=== PATIENT | female | born 1955 | race African-American/Black ===

== ENCOUNTER 2016-11-17 11:49 | Emergency (ER) | payer OTHER ==
[2016-11-17 12:02] VITALS: BP 177/85; PULSE 78; TEMP 98.2; BMI 31.7
--- NOTE | 2016-11-17 13:06 | PDOC ---
History of Present Illness - General Chief Complaint: Rash Stated Complaint: RASH/ POSSIBLE SHINGLES Time Seen by Provider: 11/17/16 12:25 History Source: Patient Exam Limitations: No Limitations - History of Present Illness Initial Comments: 11/17/16 13:04 Patient is a 61-year-old female history of COPD, reflux, hypertension, high cholesterol and cardiac stents. Patient presents emergency department for evaluation of painful rash to left lateral torso and her back. Was seen by cardiology today and was started on Valtrex however patient came to the emergency department because her primary care doctor was unavailable and she was not sure that the podiatry professor made the right decision on her diagnosis. Past Medical History: Denies. Allergies: No known allergies Medications: See medication list Family History: Non-contributory Social History: Denies smoking, alcohol use, or IVDU Review of Systems GENERAL/CONSTITUTIONAL: No fever or chills. No weakness. No weight change. HEAD, EYES, EARS, NOSE AND THROAT: No change in vision. No ear pain or discharge. No sore throat. CARDIOVASCULAR: No chest pain or shortness of breath. RESPIRATORY: No cough, wheezing, or hemoptysis. GASTROINTESTINAL: No nausea, vomiting, diarrhea or constipation. No rectal bleeding. GENITOURINARY: No dysuria, frequency, or change in urination. MUSCULOSKELETAL: No joint or muscle swelling or pain. No neck or back pain. SKIN AND BREASTS: Vesicular, painful annular rash to left lateral torso extending to back, dermatomal pattern NEUROLOGIC: No headache, vertigo, loss of consciousness, or loss of sensation. PSYCHIATRIC: No depression or anxiety. ENDOCRINE: No increased thirst. No abnormal weight change. HEMATOLOGIC/LYMPHATIC: No anemia, easy bleeding, or history of blood clots. ALLERGIC/IMMUNOLOGIC: No hives or skin allergy. No latex allergy. Physical Exam: GENERAL: The patient is awake, alert, and fully oriented, in no acute distress. EYES: Pupils equal, round and reactive to light, extraocular movements intact, sclera anicteric, conjunctiva clear. ENT: Ears normal, nares patent, oropharynx clear without exudates. Moist mucous membranes. No uvula deviation NECK: Normal range of motion, supple without lymphadenopathy, JVD, or masses. LUNGS: Breath sounds equal, clear to auscultation bilaterally. No wheezes, and no crackles. HEART: Regular rate and rhythm, normal S1 and S2 without murmur, rub or gallop. ABDOMEN: Soft, nontender, normoactive bowel sounds. No guarding, no rebound. No masses. No bruising or abrasions MUSCULOSKELETAL: Normal range of motion, no edema. No clubbing or cyanosis. No cords, erythema, or tenderness. No CVA Tenderness with fist. NEUROLOGICAL: Cranial nerves II through XII grossly intact. Normal speech, normal gait. SKIN: Vesicular, painful annular rash to left lateral torso extending to back, dermatomal pattern Past History - Past Medical History Allergies/Adverse Reactions: Allergies Allergy/AdvReac Type Severity Reaction Status Date / Time Penicillins Allergy Severe Hives Verified 11/17/16 11:57 Home Medications: Ambulatory Orders Clopidogrel Bisulfate [Plavix -] 75 mg PO DAILY 07/09/11 Furosemide [Lasix -] 40 mg PO DAILY 07/09/11 Lansoprazole [Prevacid -] 30 mg PO DAILY 07/09/11 Metoprolol Succinate [Toprol XL -] 0 mg PO BID 07/09/11 Simvastatin [Zocor -] 20 mg PO DAILY 07/09/11 Aspirin [ASA -] 81 mg PO DAILY 10/01/11 Lipase/Protease/Amylase [Creon Dr 24,000 Units Capsule] 1 each PO TID 10/01/11 Loratadine [Claritin] 0 mg PO PRN 10/01/11 Cardiac Disorders: Yes COPD: Yes (H/O BRONCHITIS) GI Disorders: Yes (ACID REFLUX) HTN: Yes Hypercholesterolemia: Yes - Surgical History Abdominal Surgery: Yes Cardiac Surgery: Yes (CARDIAC STENT) Cholecystectomy: Yes - Psycho/Social/Smoking Cessation Hx Anxiety: No Suicidal Ideation: No Smoking Status: No Smoking History: Former smoker Have you smoked in the past 12 months: No Number of Cigarettes Smoked Daily: 0 Information on smoking cessation initiated: No 'Breaking Loose' booklet given: 08/31/13 Hx Alcohol Use: No Drug/Substance Use Hx: No Substance Use Type: None *Physical Exam - Vital Signs Last Vital Signs Temp Pulse Resp BP Pulse Ox 98.2 F 78 18 177/85 100 11/17/16 11:59 11/17/16 11:59 11/17/16 11:59 11/17/16 11:59 11/17/16 11:59 Medical Decision Making - Medical Decision Making 11/17/16 13:23 A/P: Administration here for evaluation of painful rash to left lateral torso and back. Findings are consistent with shingles, patient was placed on appropriate medication confirmed after calling the pharmacy. Patient was on Valtrex, topical lidocaine as well as medication for pain. Patient to follow-up with PMD as needed instructed patient that if any lesions develop on face aren' t I to return immediately to ER. *DC/Admit/Observation/Transfer Diagnosis at time of Disposition: Shingles Qualifiers: Herpes zoster complications: without complications Qualified Code(s): B02.9 - Zoster without complications - Discharge Dispostion Disposition: HOME Condition at time of disposition: Good Admit: No - Referrals Referrals: Lisset Morfin MD [Primary Care Provider] - - Patient Instructions Additional Instructions: All of your prescriptions were called in by her primary care doctor for pain medication, topical ointment as well as for Valtrex. These are appropriate medications to treat her condition, please follow-up with your PMD in 1 week. If any increased pain, lesions to eyes, or any other concerns return to ER
== END 2016-11-17 13:08 | disposition home or self-care (01) ==
LOC: JERFT 11:49
DX: B02.9 Zoster without complications (principal); I25.10 Atherosclerotic heart disease of native coronary artery without angina pectoris; I10 Essential (primary) hypertension; Z95.5 Presence of coronary angioplasty implant and graft; E78.00 Pure hypercholesterolemia, unspecified
CPT/HCPCS: 99281-25

== ENCOUNTER 2017-04-21 16:41 | Emergency (ER) | payer OTHER ==
--- NOTE | 2017-04-21 16:58 | PDOC ---
Rapid Medical Evaluation Time Seen by Provider: 04/21/17 16:55 Medical Evaluation: Allergies Allergy/AdvReac Type Severity Reaction Status Date / Time Penicillins Allergy Severe Hives Verified 11/17/16 11:57 04/21/17 16:55 I have performed a brief in-person evaluation of this patient. The patient presents with a chief complaint of: Lower abd pain since last night worse w/ food, unsure if GERD per pt. Also c/o urinary freg x 3 days. H/o former smoker, HTN, CAD w/ stent, gastritis/GERD, UTI Pertinent physical exam findings:stable w/ unremarkable exam I have ordered the following:labs The patient will proceed to the ED for further evaluation. 04/21/17 16:58
[2017-04-21 17:00] VITALS: BP 118/54; PULSE 66; TEMP 98.4; BMI 32.5
[2017-04-21 17:36] LABS: BASO % 0.4 % (0-2.0); LYMPH % 8.1 % (8-40); MCH 27.8 pg (25.7-33.7); MEAN CELL VOLUME 89.9 fl (80-96); MEAN PLT VOLUME 8.6 fl (7.5-11.1); MONO % 4.8 % (3.8-10.2); NEUT % 86.7 % (42.8-82.8); PLATELET COUNT 247 K/MM3 (134-434); RBC 4.68 M/mm3 (3.60-5.2); RDW 13.5 % (11.6-15.6); WHITE BLOOD COUNT 11.9 K/mm3 (4.0-10.0)
[2017-04-21 17:42] LABS: URINE APPEARANCE CLEAR; URINE BILIRUBIN NEGATIVE (NEGATIVE); URINE BLOOD NEGATIVE (NEGATIVE); URINE COLOR STRAW; URINE GLUCOSE (UA) NEGATIVE (NEGATIVE); URINE KETONE NEGATIVE (NEGATIVE); URINE LEUK ESTERASE NEGATIVE (NEGATIVE); URINE NITRITE NEGATIVE (NEGATIVE); URINE PROTEIN NEGATIVE (NEGATIVE); URINE UROBILINOGEN NEGATIVE mg/dL (0.2-1.0)
[2017-04-21 18:43] LABS: ALBUMIN 3.7 g/dl (3.4-5.0); ALK PHOS 65 U/L (45-117); ANION GAP 7 (8-16); BILIRUBIN,TOTAL 0.9 mg/dL (0.2-1.0); BLOOD UREA NITROGEN 18 mg/dL (7-18); CALCIUM 9.6 mg/dL (8.5-10.1); CHLORIDE 101 mmol/L (98-107); CO2 31 mmol/L (21-32); CREATININE 0.8 mg/dL (0.55-1.02); GLUCOSE,RANDOM 107 mg/dL (74-106); LIPASE 168 U/L (73-393); POTASSIUM 4.2 mmol/L (3.5-5.1); SGOT/AST 16 U/L (15-37); SGPT/ALT 44 U/L (12-78); SODIUM 139 mmol/L (136-145)
== END 2017-04-21 20:00 | disposition left against medical advice (07) ==
LOC: JER 16:41
DX: R10.30 Lower abdominal pain, unspecified (principal); I25.10 Atherosclerotic heart disease of native coronary artery without angina pectoris; I10 Essential (primary) hypertension; Z95.5 Presence of coronary angioplasty implant and graft; K21.9 Gastro-esophageal reflux disease without esophagitis; Z87.891 Personal history of nicotine dependence; Z87.440 Personal history of urinary (tract) infections
CPT/HCPCS: 36415; 80053; 81003; 83690; 85025; 87086; 87186; 99281-25

== ENCOUNTER 2019-03-05 11:55 | Emergency (ER) | payer OTHER ==
[2019-03-05 12:05] VITALS: BP 130/71; PULSE 85; TEMP 98; BMI 33.8
--- NOTE | 2019-03-05 12:33 | PDOC ---
History of Present Illness - General Chief Complaint: Pain, Acute Stated Complaint: PAIN Time Seen by Provider: 03/05/19 12:08 History Source: Patient Exam Limitations: Clinical Condition - History of Present Illness Initial Comments: 03/05/19 12:27 Patient with past medical history of venous insufficiency being followed up by vascular present with complaint of over 4 months history of persistent swelling and pain to posterior aspect of right knee with increased swelling over right knee. Patient had duplex ultrasound done 4 months ago which shows venous insufficiency with no DVT and was being scheduled for ablation but patient has not followed up since then. Denies numbness or tingling sensation. Denies calf muscle pain, shortness of breath, chest pain, palpitations. Denies any other symptoms Is this a multiple visit Asthma Patient?: No Past History - Past Medical History Allergies/Adverse Reactions: Allergies Allergy/AdvReac Type Severity Reaction Status Date / Time Penicillins Allergy Severe Hives Verified 03/05/19 12:06 codeine AdvReac Intermediate Nausea Verified 03/05/19 12:06 Home Medications: Ambulatory Orders Clopidogrel Bisulfate [Plavix -] 75 mg PO DAILY 07/09/11 Furosemide [Lasix -] 40 mg PO DAILY 07/09/11 Lansoprazole [Prevacid -] 30 mg PO DAILY 07/09/11 Metoprolol Succinate [Toprol XL -] 0 mg PO BID 07/09/11 Simvastatin [Zocor -] 20 mg PO DAILY 07/09/11 Aspirin [ASA -] 81 mg PO DAILY 10/01/11 Lipase/Protease/Amylase [Creon Dr 24,000 Units Capsule] 1 each PO TID 10/01/11 Loratadine [Claritin] 0 mg PO PRN 10/01/11 Nitrofurantoin Monohyd/M-Cryst [Macrobid -] 100 mg PO BID #14 capsule 04/25/17 Albuterol Sulfate TID 09/20/18 Calcium 500 mg PO DAILY 09/20/18 Folic Acid - 1 mg PO DAILY 09/20/18 Hydrochlorothiazide 12.5 mg PO DAILY 09/20/18 Lipitor 40 mg PO DAILY 09/20/18 Potassium Chloride 10 meq PO DAILY 09/20/18 Spiriva 2 puff PO BID 09/20/18 Compress.stocking,Knee,Reg,Lrg [Relief Knee Open Toe] 1 each MC DAILY #1 each Anemia: No Asthma: No Cancer: No Cardiac Disorders: Yes CVA: No COPD: Yes (H/O BRONCHITIS) CHF: No Dementia: No Diabetes: No GI Disorders: Yes (ACID REFLUX) Disorders: No HTN: Yes Hypercholesterolemia: Yes Liver Disease: No Seizures: No Thyroid Disease: No - Surgical History Abdominal Surgery: Yes Appendectomy: No Cardiac Surgery: Yes (CARDIAC STENT) Cholecystectomy: Yes Lung Surgery: No Neurologic Surgery: No Orthopedic Surgery: No - Psycho Social/Smoking Cessation Hx Smoking Status: No Smoking History: Unknown if ever smoked Have you smoked in the past 12 months: No Number of Cigarettes Smoked Daily: 0 Information on smoking cessation initiated: No 'Breaking Loose' booklet given: 08/31/13 Hx Alcohol Use: No Drug/Substance Use Hx: No Substance Use Type: None Review of Systems - Review of Systems Able to Perform ROS?: Yes Is the patient limited Serbian proficient: No Constitutional: No: Fever, Malaise, Weakness HEENTM: No: Symptoms Reported Respiratory: No: Symptoms reported, Shortness of Breath, SOB with Exertion, Hemoptysis Cardiac (ROS): No: Symptoms Reported, See HPI, Chest Pain, Edema, Irregular Heart Rate, Lightheadedness, Palpitations, Syncope, Chest Tightness, Other ABD/GI: No: Symptoms Reported Musculoskeletal: Yes: Symptoms Reported, See HPI, Joint Pain (right knee), Joint Swelling (right knee swelling), Muscle Pain (posterior right knee pain) Integumentary: No: Symptoms Reported, See HPI, Change in Color, Erythema Neurological: No: Symptoms reported, Numbness, Paresthesia, Tingling All Other Systems: Reviewed and Negative *Physical Exam - Vital Signs Last Vital Signs Temp Pulse Resp BP Pulse Ox 98.0 F 85 16 130/71 100 03/05/19 12:03 03/05/19 12:03 03/05/19 12:03 03/05/19 12:03 03/05/19 12:03 - Physical Exam General Appearance: Yes: Nourished, Appropriately Dressed. No: Apparent Distress HEENT: positive: Normal ENT Inspection Neck: positive: Supple Respiratory/Chest: negative: Respiratory Distress, Accessory Muscle Use Cardiovascular: positive: Regular Rhythm, Regular Rate Musculoskeletal: positive: Normal Inspection, Other (multiple varices to b/l LE mild tenderness over posterior aspect of right knee) Extremity: positive: Normal Capillary Refill, Normal Range of Motion Integumentary: positive: Normal Color, Warm, Swelling (mild swelling over lateral aspect of right knee). negative: Other (no increased warmth or erythema to right knee) Neurologic: positive: Fully Oriented, Alert, Normal Response, Motor Strength 08/01 ED Treatment Course - RADIOLOGY Radiology Studies Ordered: Category Date Time Status KNEE 3 POS-RIGHT [RAD] Stat Radiology 03/05/19 12:21 Ordered Medical Decision Making - Medical Decision Making 03/05/19 12:29 Patient with past medical history of venous insufficiency being followed up by vascular present with complaint of over 4 months history of persistent swelling and pain to posterior aspect of right knee with increased swelling over right knee. Patient had duplex ultrasound done 4 months ago which shows venous insufficiency with no DVT and was being scheduled for ablation but patient has not followed up since then. Denies numbness or tingling sensation. Denies calf muscle pain, shortness of breath, chest pain, palpitations. Denies any other symptoms Exam significant for multiple varices to bilateral extremity with increased varices to posterior aspect of right lower extremity. Mild swelling to lateral collateral ligament. No bilateral joint effusion. Negative ballottement sign. Patient symptoms likely pain from venous insufficiency. X-ray of right knee ordered to rule out acute pathology 03/05/19 13:16 Right knee x-ray shows no acute pathology. Patient symptoms edema from venous insufficiency. Patient stable for discharge on compression stockings with follow-up back with vascular Dr. Gomez for management of venous insufficiency. Discharge - Discharge Information Problems reviewed: Yes Clinical Impression/Diagnosis: Venous insufficiency Right knee pain Qualifiers: Chronicity: chronic Qualified Code(s): M25.561 - Pain in right knee Condition: Stable Disposition: HOME - Admission No - Additional Discharge Information Prescriptions: Compress.stocking,Knee,Reg,Lrg [Relief Knee Open Toe] 1 each DAILY #1 each - Follow up/Referral Referrals: Eder Gomez DO [Staff Physician] - - Patient Discharge Instructions Patient Printed Discharge Instructions: DI for Edema Due to Venous Stasis Additional Instructions: Your x-ray is normal and your swelling is likely caused by venous insufficiency as discussed. Use prescribed compression stockings daily. Follow-up with vascular again to manage venous insufficiency - Post Discharge Activity
== END 2019-03-05 13:23 | disposition home or self-care (01) ==
LOC: JERFT 11:55
DX: M25.561 Pain in right knee (principal); I99.8 Other disorder of circulatory system; Z88.0 Allergy status to penicillin; Z88.6 Allergy status to analgesic agent; Z95.5 Presence of coronary angioplasty implant and graft; K21.9 Gastro-esophageal reflux disease without esophagitis; I10 Essential (primary) hypertension; E78.00 Pure hypercholesterolemia, unspecified; I51.9 Heart disease, unspecified
CPT/HCPCS: 73562-TC-RT-FY; 99282-25

== ENCOUNTER 2019-11-02 10:16 | Emergency (ER) | payer OTHER ==
[2019-11-02 10:34] VITALS: TEMP 98.6; BMI 32.0
[2019-11-02] MEDS ORDERED: SODIUM CHLORIDE 0.9% 500 ML INFUS.BAG IV ONE (11:14)
--- NOTE | 2019-11-02 11:14 | PDOC ---
History of Present Illness - General Chief Complaint: Ingestion Stated Complaint: TOOK WRONG MEDS/TIRED Time Seen by Provider: 11/02/19 10:45 History Source: Patient Exam Limitations: No Limitations - History of Present Illness Initial Comments: 11/02/19 11:25 64-year-old female history of CAD status post stent on Plavix and aspirin, hypertension, hyperlipidemia, UTI currently on cephalexin presents complaining of feeling sleepy and groggy over the past hour. States she has a daughter at home has multiple sclerosis and she accidentally took the wrong medications. She took her daughter's medications which was next to her medication. Usually the medications are in 2 separate bags however she her daughter's medicine in one area and her medicine in another area. She ingested gabapentin 300 mg, Remeron 15 mg 1 tablet, Zoloft 50 mg 1 tablet and Benadryl 25 mg 1 tablet approximately 1 hour ago. Denies chest pain, shortness of breath, abdominal pain, nausea, vomiting, diarrhea, back pain, suicidal or homicidal ideation or any other complaint. ROS: as above PE: GENERAL: well-appearing, NAD HEAD: NCAT EYES: Pupils equal, round and reactive to light, sclera anicteric, conjunctiva clear ENT: pharynx: no erythema, no exudate, uvula midline NECK: supple CHEST: nontender RESP: clear, no w/r/r CARDIO: rrr, no m/g/r ABD: +BS, soft, nontender, non distended BACK: no midline spinal ttp, no CVAT EXTREMITIES: Normal range of motion, no edema NEUROLOGICAL: Minimal slurred speech, normal gait SKIN: Warm, Dry 11/02/19 15:29 11/02/19 15:31 Is this a multiple visit Asthma Patient?: No Past History - Medical History Allergies/Adverse Reactions: Allergies Allergy/AdvReac Type Severity Reaction Status Date / Time Penicillins Allergy Severe Hives Verified 11/02/19 10:34 codeine AdvReac Intermediate Nausea Verified 11/02/19 10:34 Home Medications: Ambulatory Orders Clopidogrel Bisulfate [Plavix -] 75 mg PO DAILY 07/09/11 Furosemide [Lasix -] 40 mg PO DAILY 07/09/11 Lansoprazole [Prevacid -] 30 mg PO DAILY 07/09/11 Metoprolol Succinate [Toprol XL -] 0 mg PO BID 07/09/11 Simvastatin [Zocor -] 20 mg PO DAILY 07/09/11 Aspirin [ASA -] 81 mg PO DAILY 10/01/11 Lipase/Protease/Amylase [Creon Dr 24,000 Units Capsule] 1 each PO TID 10/01/11 Loratadine [Claritin] 0 mg PO PRN 10/01/11 Nitrofurantoin Monohyd/M-Cryst [Macrobid -] 100 mg PO BID #14 capsule 04/25/17 Albuterol Sulfate TID 09/20/18 Calcium 500 mg PO DAILY 09/20/18 Folic Acid - 1 mg PO DAILY 09/20/18 Hydrochlorothiazide 12.5 mg PO DAILY 09/20/18 Lipitor 40 mg PO DAILY 09/20/18 Potassium Chloride 10 meq PO DAILY 09/20/18 Spiriva 2 puff PO BID 09/20/18 Compress.stocking,Knee,Reg,Lrg [Relief Knee Open Toe] 1 each MC DAILY #1 each 03/05/19 Anemia: No Asthma: No Cancer: No Cardiac Disorders: Yes CVA: No COPD: Yes (H/O BRONCHITIS) CHF: No Dementia: No Diabetes: No GI Disorders: Yes (ACID REFLUX) Disorders: No HTN: Yes Hypercholesterolemia: Yes Liver Disease: No Seizures: No Thyroid Disease: No - Surgical History Abdominal Surgery: Yes Appendectomy: No Cardiac Surgery: Yes (CARDIAC STENT) Cholecystectomy: Yes Lung Surgery: No Neurologic Surgery: No Orthopedic Surgery: No - Reproductive History Is Patient Now?: No - Psycho-Social/Smoking History Smoking Status: No Smoking History: Never smoked Have you smoked in the past 12 months: No Number of Cigarettes Smoked Daily: 0 Information on smoking cessation initiated: No 'Breaking Loose' booklet given: 08/31/13 - Substance Abuse Hx (Audit-C & DAST Scrn) How often the patient has a drink containing alcohol: Never Score: In Men: 4 or > Positive; In Women: 3 or > Positive: 0 Screen Result (Pos requires Nsg. Audit-10AR): Negative In the last yr the pt used illegal drug/Rx for NonMed reason: No Score: Yes response is considered Positive: 0 Screen Result (Positive result requires Nsg. DAST-10): Negative *Physical Exam - Vital Signs Last Vital Signs Temp Pulse Resp BP Pulse Ox 98.6 F 74 16 114/66 100 11/02/19 10:31 11/02/19 10:31 11/02/19 10:31 11/02/19 10:31 11/02/19 10:31 ED Treatment Course - LABORATORY CBC & Chemistry Diagram: 11/02/19 12:00 11/02/19 12:00 Medical Decision Making - Medical Decision Making 11/02/19 11:52 64-year-old female history of CAD status post stent on Plavix and aspirin, hypertension, hyperlipidemia, UTI currently on cephalexin presents complaining of feeling sleepy and groggy over the past hour. States she has a daughter at home has multiple sclerosis and she accidentally took the wrong medications. She took her daughter's medications which was next to her medication. Usually the medications are in 2 separate bags however she her daughter's medicine in one area and her medicine in another area. She ingested gabapentin 300 mg, Remeron 15 mg 1 tablet, Zoloft 50 mg 1 tablet and Benadryl 25 mg 1 tablet approximately 1 hour ago. Denies chest pain, shortness of breath, abdominal pain, nausea, vomiting, diarrhea, back pain, suicidal or homicidal or any other complaint. CBC, CMP, PT/PTT EKG Chest x-ray IV fluids Consult poison control Reassess 11/02/19 15:[address] Asher from poison control at 12:10 pm who agreed with above plan, advised to observe 6 hours from time of ingestion Reviewed labs ecg: HR 93, nsr, no st or tw changes Patient slept comfortably in the ED and now feels less sleepy Patient denies nausea, vomiting, chest pain, shortness of breath or any complaints No concerning events in the ED Patient agrees with discharge plan She she agrees to find a different system such as getting different color-coded pillboxes in order to avoid any confusion at home Stable for discharge 11/02/19 15:29 11/02/19 15:30 11/02/19 15:32 Discharge - Discharge Information Problems reviewed: Yes Clinical Impression/Diagnosis: Accidental ingestion of substance Qualifiers: Encounter type: initial encounter Qualified Code(s): T65.91XA - Toxic effect of unspecified substance, accidental (unintentional), initial encounter Condition: Stable Disposition: HOME - Admission No - Follow up/Referral Referrals: Colleen Chaves NP [Primary Care Provider] - - Patient Discharge Instructions Additional Instructions: Make sure you take only your medications as prescribed Label all medications at home appropriately If you develop chest pain, shortness of breath, dizziness, vomiting, abdominal pain or any concerning symptom return to ED - Post Discharge Activity
[2019-11-02 12:55] LABS: BASO % 0.3 % (0-2.0); EOS % 1.4 % (0-4.5); HEMATOCRIT 44.8 % (32.4-45.2); HEMOGLOBIN 14.4 GM/dL (10.7-15.3); LYMPH % 21.1 % (8-40); MCH 28.6 pg (25.7-33.7); MEAN CELL VOLUME 89.4 fl (80-96); MEAN PLT VOLUME 8.7 fl (7.5-11.1); MONO % 10.2 % (3.8-10.2); PLATELET COUNT 244 K/MM3 (134-434); RBC 5.02 M/mm3 (3.60-5.2); RDW 13.2 % (11.6-15.6); WHITE BLOOD COUNT 5.3 K/mm3 (4.0-10.0)
[2019-11-02 12:58] LABS: PH,URINE 5.5 (5.0-8.0); URINE APPEARANCE CLEAR; URINE BILIRUBIN NEGATIVE (NEGATIVE); URINE COLOR YELLOW; URINE GLUCOSE (UA) NEGATIVE (NEGATIVE); URINE KETONE NEGATIVE (NEGATIVE); URINE LEUK ESTERASE NEGATIVE (NEGATIVE); URINE NITRITE NEGATIVE (NEGATIVE); URINE PROTEIN NEGATIVE (NEGATIVE)
[2019-11-02 13:00] LABS: INR 0.95 (0.83-1.09); PROTHROMBIN TIME (PATIENT) 11.2 SEC (9.7-13.0)
[2019-11-02 13:03] LABS: ACTIVATED PTT 34.8 SECONDS (25.2-36.5)
[2019-11-02 13:28] LABS: BLOOD UREA NITROGEN 17.7 mg/dL (7-18); CALCIUM 9.4 mg/dL (8.5-10.1); CREATININE 0.6 mg/dL (0.55-1.3); POTASSIUM 4.7 mmol/L (3.5-5.1)
[2019-11-02 13:30] LABS: BILIRUBIN,TOTAL 0.8 mg/dL (0.2-1); TOT PROT 7.4 g/dl (6.4-8.2)
[2019-11-02 16:09] VITALS: BP 163/82; PULSE 57
--- NOTE | 2019-11-03 14:50 | EKG ---
Test Reason : Blood Pressure : / mmHG Vent. Rate : 059 BPM Atrial Rate : 059 BPM P-R Int : 184 ms QRS Dur : 090 ms QT Int : 426 ms P-R-T Axes : 052 026 024 degrees QTc Int : 421 ms SINUS BRADYCARDIA OTHERWISE NORMAL ECG WHEN COMPARED WITH ECG OF 01-OCT-2011 17:13, NO SIGNIFICANT CHANGE WAS FOUND Confirmed by BRENT MARIEE MD ([id number]) on 11/03/2019 2:50:21 PM Referred By: Confirmed By:BRENT MARIEE MD
== END 2019-11-02 16:00 | disposition home or self-care (01) ==
LOC: JER 10:16
DX: T65.91XA Toxic effect of unspecified substance, accidental (unintentional), initial encounter (principal)
CPT/HCPCS: 36415; 80053; 81003; 83690; 85025; 85610; 85730; 87077; 87086; 87186; 93005; 93010; 99284-25

== ENCOUNTER 2021-08-10 02:12 | Inpatient (IN) | payer OTHER ==
[2021-08-10] MEDS ORDERED: SODIUM CHLORIDE 0.9% 500 ML INFUS.BAG IV ONE ×2 (02:39→09:25)
[2021-08-10] MEDS ORDERED: FAMOTIDINE 20 MG/50 ML IVPB 20 MG/50 ML MG IVPB ONE (02:39)
[2021-08-10] MEDS ORDERED: ONDANSETRON 4 MG/2 ML VIAL IVPUSH ONE (02:39)
[2021-08-10] MEDS ORDERED: ACETAMINOPHEN 1000 MG/100 ML BAG IVPB ONE (02:39)
[2021-08-10] MEDS ORDERED: ONDANSETRON 4 MG/2 ML VIAL ONE (02:49)
[2021-08-10] MEDS ORDERED: FAMOTIDINE 10 MG/ML VIAL IVPB ONE (02:49)
[2021-08-10] MEDS ORDERED: ACETAMINOPHEN INJECTION 100 ML IVPB ONE (02:49)
[2021-08-10 03:55] LABS: BASO % 0.2 % (0-2.0); EOS % 0.1 % (0-4.5); HEMATOCRIT 41.2 % (32.4-45.2); HEMOGLOBIN 13.4 GM/dL (10.7-15.3); LYMPH % 5.2 % (8-40); MCHC 32.5 g/dl (32.0-36.0); MEAN CELL VOLUME 89.4 fl (80-96); MEAN PLT VOLUME 7.5 fl (7.5-11.1); MONO % 5.5 % (3.8-10.2); PLATELET COUNT 255 10^3/uL (134-434); RBC 4.62 M/mm3 (3.60-5.2); WHITE BLOOD COUNT 12.2 K/mm3 (4.0-10.0)
[2021-08-10 04:04] LABS: INR 1.05 (0.83-1.09); PROTHROMBIN TIME (PATIENT) 12.1 SEC (9.7-13.0)
[2021-08-10 04:06] LABS: ACTIVATED PTT 31.1 SECONDS (25.2-36.5)
[2021-08-10 04:16] LABS: CALCIUM 9.1 mg/dL (8.5-10.1)
[2021-08-10 04:17] LABS: ALBUMIN 3.8 g/dl (3.4-5.0); BLOOD UREA NITROGEN 20.1 mg/dL (7-18); MAGNESIUM 2.2 mg/dL (1.8-2.4)
[2021-08-10 04:20] LABS: BILIRUBIN,TOTAL 0.8 mg/dL (0.2-1); CREATININE 0.8 mg/dL (0.55-1.3); TOT PROT 7.1 g/dl (6.4-8.2)
[2021-08-10 04:30] LABS: LACTIC ACID 3.4 mmol/L (0.4-2.0)
[2021-08-10 06:52] LABS: LACTIC ACID 2.9 mmol/L (0.4-2.0)
[2021-08-10 08:28] LABS: EPI CELLS 18 /uL (0-25.1); HYALINE CASTS 1 /uL (0-3.1); PH,URINE 5.5 (5.0-8.0); URINE APPEARANCE CLEAR; URINE BACTERIA 581 /uL (0-1359); URINE BILIRUBIN NEGATIVE (NEGATIVE); URINE COLOR YELLOW; URINE GLUCOSE (UA) NEGATIVE (NEGATIVE); URINE KETONE NEGATIVE (NEGATIVE); URINE LEUK ESTERASE TRACE (NEGATIVE); URINE NITRITE NEGATIVE (NEGATIVE); URINE PROTEIN NEGATIVE (NEGATIVE); URINE RBC 70 /uL (0-23.9); URINE WBC 5 /uL (0-25.8)
[2021-08-10 09:00] LABS: YEAST NEGATIVE (NEGATIVE)
[2021-08-10] MEDS ORDERED: morphine CARPU-JECT 2 MG/1 ML DISP.SYRIN IVPUSH ONE (10:23)
[2021-08-10] MEDS ORDERED: ACETAMINOPHEN 1000 MG/100 ML BAG IVPB PRN (10:33)
[2021-08-10] MEDS: metoPROLOL SUCCINATE 25 MG TAB.SR.24H (FP) PO SCH (14:00)
[2021-08-10] MEDS ORDERED: metoPROLOL SUCCINATE 25 MG TAB.SR.24H (FP) ONE (14:21)
[2021-08-10] MEDS: D5-1/2NS+20 MEQ KCL - 20 MEQ/1,000 ML INFUS.BAG IV SCH (14:57)
[2021-08-10] MEDS: ONDANSETRON 4 MG/2 ML VIAL IVPUSH PRN (17:40)
[2021-08-10] MEDS ORDERED: FAMOTIDINE 20 MG/50 ML IVPB 20 MG/50 ML MG IVPB SCH (22:00)
[2021-08-11] MEDS: D5-1/2NS+20 MEQ KCL - 20 MEQ/1,000 ML INFUS.BAG IV SCH ×2 (03:05→11:53)
[2021-08-11] MEDS: ONDANSETRON 4 MG/2 ML VIAL IVPUSH PRN (07:23)
[2021-08-11 08:35] LABS: BASO % 0.1 % (0-2.0); EOS % 0.6 % (0-4.5); HEMATOCRIT 41.5 % (32.4-45.2); HEMOGLOBIN 13.8 GM/dL (10.7-15.3); LYMPH % 15.3 % (8-40); MCHC 33.4 g/dl (32.0-36.0); MEAN CELL VOLUME 89.8 fl (80-96); MEAN PLT VOLUME 7.8 fl (7.5-11.1); MONO % 7.3 % (3.8-10.2); NEUT % 76.7 % (42.8-82.8); PLATELET COUNT 241 10^3/uL (134-434); RBC 4.62 M/mm3 (3.60-5.2); RDW 13.2 % (11.6-15.6); WHITE BLOOD COUNT 9.3 K/mm3 (4.0-10.0)
[2021-08-11 08:55] LABS: CALCIUM 8.5 mg/dL (8.5-10.1)
[2021-08-11 08:56] LABS: BLOOD UREA NITROGEN 7.4 mg/dL (7-18)
[2021-08-11 08:58] LABS: CREATININE 0.7 mg/dL (0.55-1.3)
[2021-08-11 09:00] LABS: BILIRUBIN,TOTAL 1.2 mg/dL (0.2-1); TOT PROT 6.1 g/dl (6.4-8.2)
[2021-08-11] MEDS: metoPROLOL SUCCINATE 25 MG TAB.SR.24H (FP) PO SCH (09:14)
[2021-08-11] MEDS ORDERED: PANTOPRAZOLE SODIUM 40 MG VIAL IVPUSH SCH (10:00)
[2021-08-11] MEDS ORDERED: [UNRECOGNIZED DRUG - OTHER] IH SCH (10:00)
[2021-08-11] MEDS ORDERED: MIST IH SCH (10:00)
[2021-08-11] MEDS ORDERED: metoPROLOL SUCCINATE 25 MG TAB.SR.24H (FP) PO SCH (10:00)
[2021-08-11] MEDS ORDERED: TIOTROPIUM BROMIDE 4 GM IH SCH (10:00)
[2021-08-11] MEDS: TIOTROPIUM BROMIDE 2.5 MCG (SPIRIVA) RESPIMAT INHALER IH SCH (10:20)
[2021-08-11] MEDS: ALBUTEROL SO4 HFA INHALER IH PRN (10:27)
[2021-08-11] MEDS: FAMOTIDINE/PF 20 MG/2 ML VIAL IVPB SCH ×2 (11:52→21:48)
[2021-08-12] MEDS: D5-1/2NS+20 MEQ KCL - 20 MEQ/1,000 ML INFUS.BAG IV SCH ×3 (06:17→23:43)
[2021-08-12 09:02] LABS: HEMATOCRIT 37.8 % (32.4-45.2); HEMOGLOBIN 12.2 GM/dL (10.7-15.3); MCH 29.1 pg (25.7-33.7); MCHC 32.4 g/dl (32.0-36.0); MEAN CELL VOLUME 89.8 fl (80-96); PLATELET COUNT 218 10^3/uL (134-434); RBC 4.21 M/mm3 (3.60-5.2); RDW 12.8 % (11.6-15.6); WHITE BLOOD COUNT 8.3 K/mm3 (4.0-10.0)
[2021-08-12] MEDS: metoPROLOL SUCCINATE 25 MG TAB.SR.24H (FP) PO SCH (09:39)
[2021-08-12] MEDS: TIOTROPIUM BROMIDE 2.5 MCG (SPIRIVA) RESPIMAT INHALER IH SCH (09:39)
[2021-08-12 09:42] LABS: ALBUMIN 2.6 g/dl (3.4-5.0); TOT PROT 5.3 g/dl (6.4-8.2)
[2021-08-12 09:44] LABS: CREATININE 0.5 mg/dL (0.55-1.3)
[2021-08-12 09:46] LABS: CALCIUM 8.1 mg/dL (8.5-10.1)
[2021-08-12] MEDS: FAMOTIDINE/PF 20 MG/2 ML VIAL IVPB SCH (10:48)
[2021-08-12 16:02] VITALS: BMI 33.1
[2021-08-12] MEDS: FAMOTIDINE 20 MG TABLET PO SCH (21:49)
[2021-08-13] MEDS ORDERED: FUROSEMIDE 20 MG TABLET (FP) PO PRN (08:05)
[2021-08-13 08:50] LABS: BASO % 0.2 % (0-2.0); EOS % 1.6 % (0-4.5); HEMATOCRIT 39.8 % (32.4-45.2); HEMOGLOBIN 12.7 GM/dL (10.7-15.3); LYMPH % 19.9 % (8-40); MCH 28.7 pg (25.7-33.7); MCHC 31.8 g/dl (32.0-36.0); MEAN CELL VOLUME 90.4 fl (80-96); MONO % 6.8 % (3.8-10.2); NEUT % 71.5 % (42.8-82.8); PLATELET COUNT 246 10^3/uL (134-434); RBC 4.41 M/mm3 (3.60-5.2); WHITE BLOOD COUNT 6.3 K/mm3 (4.0-10.0)
[2021-08-13] MEDS: ASPIRIN 81 MG CHEWABLE TABLETS PO SCH (09:02)
[2021-08-13] MEDS: metoPROLOL SUCCINATE 25 MG TAB.SR.24H (FP) PO SCH (09:02)
[2021-08-13] MEDS: MULTIVITAMINS (DAILY MVI) TABLET (FP) PO SCH (09:02)
[2021-08-13] MEDS: TIOTROPIUM BROMIDE 2.5 MCG (SPIRIVA) RESPIMAT INHALER IH SCH (09:03)
[2021-08-13] MEDS: FAMOTIDINE 20 MG TABLET PO SCH (09:05)
[2021-08-13 09:21] LABS: ALBUMIN 2.8 g/dl (3.4-5.0); CALCIUM 8.4 mg/dL (8.5-10.1); MAGNESIUM 2.2 mg/dL (1.8-2.4)
[2021-08-13 09:24] LABS: PHOSPHOROUS 2.8 mg/dL (2.5-4.9)
[2021-08-13 09:25] LABS: CREATININE 0.5 mg/dL (0.55-1.3)
[2021-08-13 09:26] LABS: BILIRUBIN,TOTAL 1.2 mg/dL (0.2-1); TOT PROT 5.8 g/dl (6.4-8.2)
[2021-08-13] MEDS ORDERED: LIPASE/PROTEASE/AMYLASE 6,000 UNIT CAPSULE PO SCH (12:00)
[2021-08-13] MEDS: LISINOPRIL 5 MG TABLET PO SCH (12:19)
[2021-08-13] MEDS: D5-1/2NS+20 MEQ KCL - 20 MEQ/1,000 ML INFUS.BAG IV SCH (17:38)
[2021-08-13] MEDS: LIPASE/PROTEASE/AMYLASE 6,000 UNIT CAPSULE PO SCH (17:39)
[2021-08-13] MEDS ORDERED: ACETAMINOPHEN 325 MG TABLET (FP) PO PRN (18:05)
[2021-08-13] MEDS ORDERED: ATORVASTATIN CA 40 MG TABLET (FP) PO SCH (22:00)
[2021-08-14] MEDS: FAMOTIDINE 20 MG TABLET PO SCH ×4 (00:18→10:50)
[2021-08-14] MEDS: LIPASE/PROTEASE/AMYLASE 6,000 UNIT CAPSULE PO SCH ×3 (08:58→16:30)
[2021-08-14 09:30] LABS: HEMATOCRIT 38.1 % (32.4-45.2); HEMOGLOBIN 12.7 GM/dL (10.7-15.3); MCH 29.8 pg (25.7-33.7); MCHC 33.3 g/dl (32.0-36.0); MEAN CELL VOLUME 89.4 fl (80-96); PLATELET COUNT 241 10^3/uL (134-434); RBC 4.26 M/mm3 (3.60-5.2); RDW 12.8 % (11.6-15.6); WHITE BLOOD COUNT 5.5 K/mm3 (4.0-10.0)
[2021-08-14] MEDS: LISINOPRIL 5 MG TABLET PO SCH (10:40)
[2021-08-14] MEDS: MULTIVITAMINS (DAILY MVI) TABLET (FP) PO SCH (10:50)
[2021-08-14] MEDS: ASPIRIN 81 MG CHEWABLE TABLETS PO SCH (10:50)
[2021-08-14] MEDS: TIOTROPIUM BROMIDE 2.5 MCG (SPIRIVA) RESPIMAT INHALER IH SCH (10:50)
[2021-08-14] MEDS: metoPROLOL SUCCINATE 25 MG TAB.SR.24H (FP) PO SCH (10:50)
[2021-08-14] MEDS: ALBUTEROL SO4 HFA INHALER IH PRN (10:51)
[2021-08-14 11:01] LABS: ALBUMIN 2.9 g/dl (3.4-5.0); BLOOD UREA NITROGEN 8.6 mg/dL (7-18); CREATININE 0.6 mg/dL (0.55-1.3); PHOSPHOROUS 3.1 mg/dL (2.5-4.9)
[2021-08-14 11:03] LABS: TOT PROT 6.1 g/dl (6.4-8.2)
[2021-08-14 11:04] LABS: CALCIUM 8.6 mg/dL (8.5-10.1); MAGNESIUM 2.1 mg/dL (1.8-2.4)
[2021-08-14 11:10] LABS: BILIRUBIN,TOTAL 1.3 mg/dL (0.2-1)
[2021-08-14 14:51] VITALS: BP 135/62; PULSE 67; TEMP 98.2
[2021-08-14] MEDS ORDERED: SIMETHICONE 80 MG TAB.CHEW (FP) PO ONE (16:09)
== END 2021-08-14 16:45 | disposition home or self-care (01) | DRG 394 ==
LOC: JER 02:12 → JERBED 10:32 → J7W 17:22
PROVIDERS: ADMIT Internal Medicine; ATTEND Internal Medicine
DX: K55.9 Vascular disorder of intestine, unspecified (principal); I50.32 Chronic diastolic (congestive) heart failure; N39.0 Urinary tract infection, site not specified; K62.5 Hemorrhage of anus and rectum; I25.10 Atherosclerotic heart disease of native coronary artery without angina pectoris; I11.0 Hypertensive heart disease with heart failure; E78.5 Hyperlipidemia, unspecified; I87.2 Venous insufficiency (chronic) (peripheral)
CPT/HCPCS: 36415; 71045-TC-FY; 71250-TC; 74019-TC-FY; 74174-TC; 80053; 81003; 83605; 83690; 83735; 84100; 84484; 85025; 85027; 85610; 85730; 86850; 86900; 86901; 87045; 87046; 87086; 87177; 87186; 87209; 87324; 87449; 93005; 93010; 93975; 99285-25; C9803-CS; U0003; U0005

== ENCOUNTER 2021-08-30 18:14 | Emergency (ER) | payer OTHER ==
[2021-08-30 18:29] VITALS: BP 111/78; PULSE 69; TEMP 97.9; BMI 31.7
[2021-08-30 20:33] LABS: EPI CELLS 16 /uL (0-25.1); HYALINE CASTS 0 /uL (0-3.1); PH,URINE 7.5 (5.0-8.0); URINE APPEARANCE CLEAR; URINE BACTERIA 4789 /uL (0-1359); URINE BILIRUBIN NEGATIVE (NEGATIVE); URINE COLOR YELLOW; URINE GLUCOSE (UA) NEGATIVE (NEGATIVE); URINE KETONE NEGATIVE (NEGATIVE); URINE LEUK ESTERASE 1+ (NEGATIVE); URINE NITRITE NEGATIVE (NEGATIVE); URINE PROTEIN NEGATIVE (NEGATIVE); URINE RBC 1 /uL (0-23.9); URINE UROBILINOGEN 0.2 mg/dL (0.2-1.0); URINE WBC 52 /uL (0-25.8)
== END 2021-08-30 21:13 | disposition home or self-care (01) ==
LOC: JER 18:14 → JERFT 18:14
DX: N30.00 Acute cystitis without hematuria (principal)
CPT/HCPCS: 81003; 87086; 87186; 99283-25

== ENCOUNTER 2021-10-21 11:51 | Emergency (ER) | payer OTHER ==
[2021-10-21 12:30] VITALS: BP 111/74; PULSE 60; RESP 18; TEMP 98.2
== END 2021-10-21 16:55 | disposition home or self-care (01) ==
LOC: JERFT 11:51
DX: M25.562 Pain in left knee (principal)
CPT/HCPCS: 73562-TC-LT-FY; 99284-25

== ENCOUNTER 2022-02-05 09:58 | Day surgery (SDC) | payer OTHER ==
[2022-02-03 17:25] VITALS: BMI 30.2
[2022-02-05 10:37] VITALS: RESP 18; TEMP 97.8
[2022-02-05 12:57] VITALS: BP 131/74; PULSE 74
== END 2022-02-05 13:05 | disposition home or self-care (01) ==
LOC: FASU-ENDO 09:58
PROVIDERS: ATTEND Internal Medicine Gastroenterology
PROC: 0DBL8ZX Excision of Transverse Colon, Via Natural or Artificial Opening Endoscopic, Diagnostic (ICD-10-PCS; 2022-02-05)
PROC: 0DBP8ZX Excision of Rectum, Via Natural or Artificial Opening Endoscopic, Diagnostic (ICD-10-PCS; 2022-02-05)
PROC: 0DBM8ZX Excision of Descending Colon, Via Natural or Artificial Opening Endoscopic, Diagnostic (ICD-10-PCS; 2022-02-05)
PROC: 0DBK8ZX Excision of Ascending Colon, Via Natural or Artificial Opening Endoscopic, Diagnostic (ICD-10-PCS; principal; 2022-02-05 11:22)
DX: K57.30 Diverticulosis of large intestine without perforation or abscess without bleeding (principal); K64.1 Second degree hemorrhoids; K63.89 Other specified diseases of intestine; R19.7 Diarrhea, unspecified
CPT/HCPCS: 88305-TC

== ENCOUNTER 2022-05-07 11:03 | Day surgery (SDC) | payer OTHER ==
[2022-05-01 11:41] VITALS: BMI 30.5
[2022-05-07 13:59] VITALS: RESP 16; TEMP 98
[2022-05-07 14:01] VITALS: BP 129/76; PULSE 65
== END 2022-05-07 14:34 | disposition home or self-care (01) ==
LOC: FASU-ENDO 11:03
PROVIDERS: ATTEND Internal Medicine Gastroenterology
PROC: 0DBL8ZX Excision of Transverse Colon, Via Natural or Artificial Opening Endoscopic, Diagnostic (ICD-10-PCS; 2022-05-07)
PROC: 0DBM8ZX Excision of Descending Colon, Via Natural or Artificial Opening Endoscopic, Diagnostic (ICD-10-PCS; 2022-05-07)
PROC: 0DB98ZX Excision of Duodenum, Via Natural or Artificial Opening Endoscopic, Diagnostic (ICD-10-PCS; 2022-05-07)
PROC: 0DB68ZX Excision of Stomach, Via Natural or Artificial Opening Endoscopic, Diagnostic (ICD-10-PCS; 2022-05-07)
PROC: 0DB48ZX Excision of Esophagogastric Junction, Via Natural or Artificial Opening Endoscopic, Diagnostic (ICD-10-PCS; 2022-05-07)
PROC: 0DBK8ZX Excision of Ascending Colon, Via Natural or Artificial Opening Endoscopic, Diagnostic (ICD-10-PCS; principal; 2022-05-07 12:55)
DX: K29.50 Unspecified chronic gastritis without bleeding (principal); K44.9 Diaphragmatic hernia without obstruction or gangrene; K64.1 Second degree hemorrhoids; K57.30 Diverticulosis of large intestine without perforation or abscess without bleeding; R19.7 Diarrhea, unspecified
CPT/HCPCS: 88305-TC; 88342-TC

== ENCOUNTER 2022-07-07 16:58 | Emergency (ER) | payer OTHER ==
[2022-07-07 17:29] VITALS: BP 104/60; PULSE 75; RESP 16; TEMP 98.2; BMI 29.5
[2022-07-07] MEDS ORDERED: ACETAMINOPHEN 500 MG TABLET (FP) ONE (23:00)
[2022-07-07] MEDS ORDERED: ACETAMINOPHEN 500 MG TABLET (FP) PO ONE (23:00)
== END 2022-07-07 23:11 | disposition home or self-care (01) ==
LOC: JERFT 16:58
DX: M25.511 Pain in right shoulder (principal); M25.561 Pain in right knee; W18.30XA Fall on same level, unspecified, initial encounter
CPT/HCPCS: 70450-TC; 71250-TC; 72125-TC; 73030-TC-RT-FY; 73564-TC-RT-FY; 99283-25

== ENCOUNTER 2024-08-23 13:12 | Emergency (ER) | payer OTHER ==
[2024-08-23 13:36] VITALS: RESP 16; BMI 30.7
[2024-08-23] MEDS ORDERED: ACETAMINOPHEN 325 MG TABLET (FP) ONE (14:10)
[2024-08-23] MEDS: ACETAMINOPHEN 500 MG TABLET (FP) PO ONE (14:15)
[2024-08-23 15:23] LABS: ABSOLUTE IMMATURE GRANULOCYTES 0.04 x10^3/uL (0.0-0.031); BASOPHILS # 0.01 x10^3/uL (0.01-0.08); EOSINOPHIL % 2.7 % (0.7-5.8); EOSINOPHILS # 0.29 x10^3/uL (0.04-0.36); HEMATOCRIT 37.3 % (34.1-44.9); HEMOGLOBIN 11.7 g/dL (11.2-15.7); MCHC 31.4 g/dl (32.2-35.5); MEAN CELL VOLUME 93.3 fl (79.4-94.8); MEAN PLT VOLUME 10.8 fl (9.4-12.3); MONOCYTE # 0.39 x10^3/uL (0.24-0.86); MONOCYTE % 3.7 % (4.7-12.5); PLATELET COUNT 265 x10^3/uL (182-369); RDW 12.9 % (12.4-16.4)
[2024-08-23 15:37] LABS: INR 1.19 (0.83-1.09)
[2024-08-23 15:39] LABS: ACTIVATED PTT 32.9 SECONDS (25.2-36.5)
[2024-08-23 15:42] LABS: POTASSIUM 4.2 mmol/L (3.5-5.1)
[2024-08-23 15:44] LABS: ALBUMIN 3.5 g/dl (3.4-5.0); BLOOD UREA NITROGEN 10.4 mg/dL (7-18); CALCIUM 9.7 mg/dL (8.5-10.1)
[2024-08-23 15:49] LABS: CREATININE 0.7 mg/dL (0.55-1.3)
[2024-08-23 15:50] LABS: TOT PROT 6.7 g/dl (6.4-8.2)
[2024-08-23 17:07] VITALS: BP 103/65; PULSE 84; TEMP 98.3
[2024-08-23 17:53] LABS: BILIRUBIN,DIRECT 0.3 mg/dL (0.0-0.2)
== END 2024-08-23 18:11 | disposition home or self-care (01) ==
LOC: JER 13:12
DX: R05.1 Acute cough (principal); E80.6 Other disorders of bilirubin metabolism; R50.9 Fever, unspecified; R09.3 Abnormal sputum; R07.89 Other chest pain
CPT/HCPCS: 0241U-QW; 36415; 71046-TC-FY; 80053; 82248; 84484; 85025; 85610; 85730; 86850; 86900; 86901; 93005; 93010; 99285-25